=== PATIENT | male | born 1995 | race Two or more races ===

== ENCOUNTER 2020-05-10 18:04 | Emergency (ER) | payer OTHER ==
[~2020-05-10] VITALS: Ht 175.3 cm; Wt 101.4 kg
[2020-05-10 18:06] VITALS: BP 147/98
[2020-05-10] MEDS ORDERED: LIDOCAINE-MPF 1%, 5ML ONE (19:05)
[2020-05-10] MEDS ORDERED: NEOSPORIN OINT. PKT 1 PACKET ONE (20:05)
== END 2020-05-10 20:19 | disposition home or self-care (01) ==
LOC: ED 18:30
DX: S61.211A Laceration without foreign body of left index finger without damage to nail, initial encounter (principal); W26.0XXA Contact with knife, initial encounter; Y93.89 Activity, other specified; Y92.009 Unspecified place in unspecified non-institutional (private) residence as the place of occurrence of the external cause; Y99.8 Other external cause status
CPT/HCPCS: 12041; 99284

== ENCOUNTER 2020-07-04 13:46 | Emergency (ER) | payer SELFPAY ==
[~2020-07-04] VITALS: Ht 182.9 cm; Wt 98.2 kg
[2020-07-04 13:56] VITALS: BP 131/69
== END 2020-07-04 15:42 | disposition home or self-care (01) ==
LOC: ED 15:19
DX: R43.0 Anosmia (principal); Z20.818 Contact with and (suspected) exposure to other bacterial communicable diseases; R43.9 Unspecified disturbances of smell and taste
CPT/HCPCS: 36415; 87635; 99283